=== PATIENT | male | born 1965 | race African-American/Black ===

== ENCOUNTER 2019-07-19 16:16 | Inpatient (IN) | payer OTHER ==
[2019-07-19 18:31] VITALS: BMI 28.5
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
[2019-07-19] MEDS ORDERED: guaiFENesin 200 MG/10 ML 10 ML UNIT-DOSE CUPS PO PRN (21:44)
[2019-07-19] MEDS ORDERED: hydrOXYzine PAMOATE 25 MG CAPSULE (FP) PO PRN (21:44)
[2019-07-19] MEDS ORDERED: IBUPROFEN 400 MG TABLET (FP) PO PRN (21:44)
[2019-07-19] MEDS ORDERED: DICYCLOMINE HCL 10 MG CAPSULE PO PRN (21:44)
[2019-07-19] MEDS ORDERED: BISMUTH SUBSALICYLATE 524 MG/30 ML UD PO PRN (21:44)
[2019-07-19] MEDS ORDERED: ONDANSETRON *ODT* 4 MG TABLET SL PRN (21:44)
[2019-07-19] MEDS ORDERED: METHOCARBAMOL 500 MG TABLET PO PRN (21:44)
[2019-07-19] MEDS ORDERED: MENTHOL/PHENOL 1 EACH UD MM PRN (21:44)
[2019-07-19] MEDS ORDERED: NICOTINE POLACRILEX 2 MG GUM BUC PRN (21:44)
[2019-07-19] MEDS ORDERED: MAGNESIUM CITRATE 300 ML BOTTLE PO PRN (21:44)
[2019-07-19] MEDS ORDERED: ACETAMINOPHEN 325 MG TABLET (FP) PO PRN ×2 (21:44)
[2019-07-19] MEDS ORDERED: MAGNESIUM HYDROX 2400MG/30ML ORAL SUSPENSION 30 ML CUP PO PRN (21:44)
[2019-07-19] MEDS ORDERED: MAG HYDROX/AL HYDROX/SIMETH 30 ML UNIT-DOSE CUP PO PRN (21:44)
[2019-07-19] MEDS ORDERED: P-EPHED 60MG/TRIPROLIDI 2.5MG TABLET PO PRN (21:44)
[2019-07-19] MEDS ORDERED: chlordiazePOXIDE HCL 25 MG CAPSULE PO PRN (21:44)
[2019-07-19] MEDS ORDERED: MELATONIN 5 MG TABLETS PO PRN (21:44)
[2019-07-19] MEDS: ATORVASTATIN CA 20 MG TABLET (FP) PO SCH (23:59)
[2019-07-19] MEDS: THIAMINE HCL 100 MG TABLET (FP) PO SCH (23:59)
[2019-07-19] MEDS: chlordiazePOXIDE HCL 25 MG CAPSULE PO SCH (23:59)
[2019-07-20] MEDS: chlordiazePOXIDE HCL 25 MG CAPSULE PO SCH ×4 (06:38→22:37)
[2019-07-20] MEDS: PRENATAL VITAMINS W/ FOLIC ACID TABLET (FP) PO SCH (10:00)
[2019-07-20] MEDS: NICOTINE 14 MG/24 HOURS TOPICAL PATCH TD SCH (10:00)
[2019-07-20 10:53] LABS: HEMATOCRIT 39.7 % (35.4-49); HEMOGLOBIN 12.9 GM/dL (11.7-16.9); MCH 26.5 pg (25.7-33.7); MCHC 32.5 g/dl (32.0-35.9); MEAN CELL VOLUME 81.4 fl (80-96); MEAN PLT VOLUME 10.2 fl (7.5-11.1); PLATELET COUNT 182 K/MM3 (134-434); RBC 4.87 M/mm3 (4.00-5.60); RDW 14.4 % (11.9-15.9); WHITE BLOOD COUNT 5.3 K/mm3 (4.0-10.0)
[2019-07-20 11:16] LABS: ALBUMIN 3.3 g/dl (3.4-5.0); BILIRUBIN,TOTAL 0.5 mg/dL (0.2-1); BLOOD UREA NITROGEN 10.7 mg/dL (7-18); CALCIUM 8.9 mg/dL (8.5-10.1); POTASSIUM 3.3 mmol/L (3.5-5.1); TOT PROT 6.3 g/dl (6.4-8.2)
--- NOTE | 2019-07-20 14:52 | CONSULT ---
[facility] Psychiatric Consult - Data Date of interview: 07/20/19 Psychiatric History: Patient was approached at bedside. Told financial underwriter:"I'm extremely tired right now. Can I talk to you tomorrow". Please reconsult when patient is willing to be interviewed
[2019-07-20] MEDS ORDERED: POTASSIUM CHLORIDE ORAL LIQUID 20 MEQ/15 ML PO ONE ×3 (15:43→22:00)
--- NOTE | 2019-07-20 15:43 | PN ---
[facility] CIWA - CIWA Score Nausea/Vomitin-Mild Nausea/No Vomiting Muscle Tremors: 4-Moderate,w/Arms Extend Anxiety: 3 Agitation: 3 Paroxysmal Sweats: 3 Orientation: 0-Oriented Tacttile Disturbances: 0-None Auditory Disturbances: 0-None Visual Disturbances: 0-None Headache: 0-None Present CIWA-Ar Total Score: 14 S Progress Note (SOAP) Subjective: Patient asleep but easily awaken, refused to speak with lyric writer Objective: 07/20/19 15:39 Last Vital Signs Temp Pulse Resp BP Pulse Ox 97.4 F L 83 18 111/68 07/20/19 14:36 07/20/19 14:36 07/20/19 14:36 07/20/19 14:36 Laboratory Tests 07/20/19 07/20/19 08:00 08:00 WBC 5.3 RBC 4.87 Hgb 12.9 Hct 39.7 MCV 81.4 MCH 26.5 MCHC 32.5 RDW 14.4 Plt Count 182 D MPV 10.2 Sodium 142 Potassium 3.3 L Chloride 104 Carbon Dioxide 28 Anion Gap 10 BUN 10.7 Creatinine 1.0 Est GFR (CKD-EPI)AfAm 99.15 Est GFR (CKD-EPI)NonAf 85.55 Random Glucose 138 H Calcium 8.9 Total Bilirubin 0.5 AST 29 ALT 40 Alkaline Phosphatase 86 Total Protein 6.3 L Albumin 3.3 L Labs reviewed: K 3.3, glucose 138 Assessment: 07/20/19 15:40 Withdrawal sxs Noted with hypokalemia and hyperglycemia Plan: Continue detox Encouraged PO water intake Hypokalemia: start K Dur 40 Meq solution PO x 2 doses (give at least 4 hours apart), repeat serum K level in AM Hyperglycemia: denies DM, repeat fasting glucose and send A1c
--- NOTE | 2019-07-20 21:19 | PN ---
[facility] Progress Note Note: Patient did not receive 5 pm dose of KCL as was unavailable. Vital Signs 07/20/19 07/20/19 14:36 17:13 Temperature 97.4 F L 98.2 F Pulse Rate 83 86 Respiratory 18 20 Rate Blood Pressure 111/68 124/73 Will receive 40 meq of KCL @ 10 pm, as prescribed. Scheduled for repeat K level in am. Patient will be evaluated for additional KCL dosing after results of a.m. labs are received.
[2019-07-20] MEDS: THIAMINE HCL 100 MG TABLET (FP) PO SCH (22:37)
[2019-07-20] MEDS: ATORVASTATIN CA 20 MG TABLET (FP) PO SCH (22:37)
[2019-07-21] MEDS: chlordiazePOXIDE HCL 25 MG CAPSULE PO SCH ×4 (05:41→22:30)
[2019-07-21 09:50] LABS: POTASSIUM 4.2 mmol/L (3.5-5.1)
[2019-07-21] MEDS: PRENATAL VITAMINS W/ FOLIC ACID TABLET (FP) PO SCH (11:08)
[2019-07-21] MEDS: NICOTINE 14 MG/24 HOURS TOPICAL PATCH TD SCH (11:08)
--- NOTE | 2019-07-21 11:22 | PN ---
[facility] CIWA - CIWA Score Nausea/Vomitin-No Nausea/No Vomiting Muscle Tremors: 3 Anxiety: 3 Agitation: 3 Paroxysmal Sweats: 2 Orientation: 0-Oriented Tacttile Disturbances: 0-None Auditory Disturbances: 0-None Visual Disturbances: 0-None Headache: 0-None Present CIWA-Ar Total Score: 11 S Progress Note (SOAP) Subjective: body aches sweats irritable agitation interrupted sleep Objective: 07/21/19 11:20 Vital Signs Temperature 97.9 F 07/21/19 09:38 Pulse Rate 85 07/21/19 09:38 Respiratory Rate 20 07/21/19 09:38 Blood Pressure 137/74 07/21/19 09:38 O2 Sat by Pulse Oximetry (%) Laboratory Tests 07/20/19 07/20/19 07/20/19 08:00 08:00 08:00 WBC 5.3 RBC 4.87 Hgb 12.9 Hct 39.7 MCV 81.4 MCH 26.5 MCHC 32.5 RDW 14.4 Plt Count 182 D MPV 10.2 Sodium 142 Potassium 3.3 L Chloride 104 Carbon Dioxide 28 Anion Gap 10 BUN 10.7 Creatinine 1.0 Est GFR (CKD-EPI)AfAm 99.15 Est GFR (CKD-EPI)NonAf 85.55 Random Glucose 138 H Fasting Glucose Hemoglobin A1c % Calcium 8.9 Total Bilirubin 0.5 AST 29 ALT 40 Alkaline Phosphatase 86 Total Protein 6.3 L Albumin 3.3 L RPR Titer Nonreactive 07/21/19 07/21/19 08:00 08:00 WBC RBC Hgb Hct MCV MCH MCHC RDW Plt Count MPV Sodium Potassium 4.2 Chloride Carbon Dioxide Anion Gap BUN Creatinine Est GFR (CKD-EPI)AfAm Est GFR (CKD-EPI)NonAf Random Glucose Fasting Glucose 85 Hemoglobin A1c % 6.1 Calcium Total Bilirubin AST ALT Alkaline Phosphatase Total Protein Albumin RPR Titer labs noted potassium WNL A1C 6.1; patient teaching provided on diet changes, eating more fruits/veg, low salt/low sugar diet. increase water intake pt understand and in agreement. Assessment: 07/21/19 11:22 withdrawal s Plan: continue detox increase fluids motrin/tylenol prn
[2019-07-21] MEDS: ATORVASTATIN CA 20 MG TABLET (FP) PO SCH (22:30)
[2019-07-21] MEDS: THIAMINE HCL 100 MG TABLET (FP) PO SCH (22:30)
[2019-07-22] MEDS ORDERED: chlordiazePOXIDE HCL 10 MG CAPSULE PO PRN
[2019-07-22] MEDS: chlordiazePOXIDE HCL 10 MG CAPSULE PO SCH ×4 (05:34→22:42)
[2019-07-22] MEDS: PRENATAL VITAMINS W/ FOLIC ACID TABLET (FP) PO SCH (10:39)
--- NOTE | 2019-07-22 11:33 | PN ---
[facility] CIWA - CIWA Score Nausea/Vomitin-No Nausea/No Vomiting Muscle Tremors: 2 Anxiety: 1-Mildly Anxious Agitation: 2 Paroxysmal Sweats: No Perspiration Orientation: 0-Oriented Tacttile Disturbances: 0-None Auditory Disturbances: 0-None Visual Disturbances: 0-None Headache: 0-None Present CIWA-Ar Total Score: 5 [facility] Progress Note (SOAP) Subjective: agitation restless Objective: 07/22/19 11:32 Vital Signs Temperature 96.4 F L 07/22/19 09:52 Pulse Rate 81 07/22/19 09:52 Respiratory Rate 18 07/22/19 09:52 Blood Pressure 126/80 07/22/19 09:52 O2 Sat by Pulse Oximetry (%) aaox3 ambulating no acute distress Assessment: 07/22/19 11:33 mild withdrawals Plan: continue detox increase fluids
[2019-07-22] MEDS: NICOTINE 14 MG/24 HOURS TOPICAL PATCH TD SCH (11:47)
--- NOTE | 2019-07-22 13:35 | EKG ---
Test Reason : Blood Pressure : / mmHG Vent. Rate : 079 BPM Atrial Rate : 079 BPM P-R Int : 160 ms QRS Dur : 078 ms QT Int : 414 ms P-R-T Axes : 050 029 037 degrees QTc Int : 474 ms NORMAL SINUS RHYTHM NONSPECIFIC ST AND T WAVE ABNORMALITY PROLONGED QT ABNORMAL ECG NO PREVIOUS ECGS AVAILABLE Confirmed by MD Remigio, Javier ([id number]) on 07/22/2019 1:35:24 PM Referred By: Confirmed By:Javier Flood MD
[2019-07-22] MEDS: THIAMINE HCL 100 MG TABLET (FP) PO SCH (22:41)
[2019-07-22] MEDS: ATORVASTATIN CA 20 MG TABLET (FP) PO SCH (22:42)
[2019-07-23] MEDS ORDERED: chlordiazePOXIDE HCL 10 MG CAPSULE PO SCH (05:00)
[2019-07-23 09:19] VITALS: BP 113/77; PULSE 96; TEMP 98.2
--- NOTE | 2019-07-23 09:19 | DS ---
[facility] Detox Discharge Summary Admission Date: 07/19/19 Discharge Date: 07/23/19 - History Present History: Alcohol Dependence, Cocaine Dependence - Physical Exam Results Vital Signs: Vital Signs Temperature 97.7 F 07/23/19 07:27 Pulse Rate 93 H 07/23/19 07:27 Respiratory Rate 18 07/23/19 07:27 Blood Pressure 125/76 07/23/19 07:27 O2 Sat by Pulse Oximetry (%) Pertinent Admission Physical Exam Findings: pt arrived in withdrawal Vital Signs Temperature 97.7 F 07/23/19 07:27 Pulse Rate 93 H 07/23/19 07:27 Respiratory Rate 18 07/23/19 07:27 Blood Pressure 125/76 07/23/19 07:27 O2 Sat by Pulse Oximetry (%) Laboratory Tests 07/20/19 07/20/19 07/20/19 08:00 08:00 08:00 WBC 5.3 RBC 4.87 Hgb 12.9 Hct 39.7 MCV 81.4 MCH 26.5 MCHC 32.5 RDW 14.4 Plt Count 182 D MPV 10.2 Sodium 142 Potassium 3.3 L Chloride 104 Carbon Dioxide 28 Anion Gap 10 BUN 10.7 Creatinine 1.0 Est GFR (CKD-EPI)AfAm 99.15 Est GFR (CKD-EPI)NonAf 85.55 Random Glucose 138 H Fasting Glucose Hemoglobin A1c % Calcium 8.9 Total Bilirubin 0.5 AST 29 ALT 40 Alkaline Phosphatase 86 Total Protein 6.3 L Albumin 3.3 L RPR Titer Nonreactive 07/21/19 07/21/19 08:00 08:00 WBC RBC Hgb Hct MCV MCH MCHC RDW Plt Count MPV Sodium Potassium 4.2 Chloride Carbon Dioxide Anion Gap BUN Creatinine Est GFR (CKD-EPI)AfAm Est GFR (CKD-EPI)NonAf Random Glucose Fasting Glucose 85 Hemoglobin A1c % 6.1 Calcium Total Bilirubin AST ALT Alkaline Phosphatase Total Protein Albumin RPR Titer today pt is aaox3 ambulating no acute distress no s/s of withdrawals - Treatment Hospital Course: Detox Protocol Followed, Detoxed Safely, Responded well, Discharged Condition Good, Rehab Referral Accepted Patient has Accepted a Rehab Referral to: declined rehab; referral provided - Medication Discharge Medications: Ambulatory Orders Simvastatin 40 mg PO DAILY 07/19/19 - Diagnosis (1) Alcohol dependence with withdrawal, uncomplicated Current Visit: Yes Status: Chronic (2) Cocaine dependence, uncomplicated Current Visit: Yes Status: Chronic (3) Depressed affect Current Visit: Yes Status: Acute (4) Mental health disorder Current Visit: Yes Status: Acute (5) Nicotine dependence Current Visit: Yes Status: Chronic Qualifiers: Nicotine product type: cigarettes Substance use status: uncomplicated Qualified Code(s): F17.210 - Nicotine dependence, cigarettes, uncomplicated (6) Substance induced mood disorder Current Visit: Yes Status: Acute - AMA Did Patient Leave Against Medical Advice: No
[2019-07-23 09:46] LABS: PH,URINE 7.5 (5.0-8.0); URINE APPEARANCE CLEAR; URINE BILIRUBIN NEGATIVE (NEGATIVE); URINE COLOR YELLOW; URINE GLUCOSE (UA) NEGATIVE (NEGATIVE); URINE KETONE NEGATIVE (NEGATIVE); URINE LEUK ESTERASE NEGATIVE (NEGATIVE); URINE NITRITE NEGATIVE (NEGATIVE); URINE PROTEIN NEGATIVE (NEGATIVE); URINE UROBILINOGEN 0.2 mg/dL (0.2-1.0)
[2019-07-24] MEDS ORDERED: chlordiazePOXIDE HCL 10 MG CAPSULE PO ONE (05:00)
== END 2019-07-23 09:00 | disposition home or self-care (01) | DRG 774 ==
LOC: YASAS 16:16 → Y6N 22:30
PROVIDERS: ADMIT Allergy & Immunology; ATTEND Allergy & Immunology
PROC: HZ2ZZZZ Detoxification Services for Substance Abuse Treatment (ICD-10-PCS; principal; 2019-07-19)
DX: F10.230 Alcohol dependence with withdrawal, uncomplicated (principal); F14.20 Cocaine dependence, uncomplicated; F17.210 Nicotine dependence, cigarettes, uncomplicated; F99 Mental disorder, not otherwise specified; F32.9 Major depressive disorder, single episode, unspecified; F19.24 Other psychoactive substance dependence with psychoactive substance-induced mood disorder; E87.6 Hypokalemia; E78.00 Pure hypercholesterolemia, unspecified; R73.9 Hyperglycemia, unspecified; L98.8 Other specified disorders of the skin and subcutaneous tissue; Z91.011 Allergy to milk products; Z91.018 Allergy to other foods
CPT/HCPCS: 36415; 80053; 81003; 82947; 83036; 84132; 85027; 86593; 93005; 93010

== ENCOUNTER 2021-02-24 19:37 | Inpatient (IN) | payer OTHER ==
[2021-02-24] MEDS ORDERED: IBUPROFEN 400 MG TABLET (FP) PO PRN (20:59)
[2021-02-24] MEDS ORDERED: ONDANSETRON *ODT* 4 MG TABLET SL PRN (20:59)
[2021-02-24] MEDS ORDERED: BISMUTH SUBSALICYLATE 524 MG/30 ML PO PRN (20:59)
[2021-02-24] MEDS ORDERED: MAG HYDROX/AL HYDROX/SIMETH 30 ML UNIT-DOSE CUP PO PRN (20:59)
[2021-02-24] MEDS ORDERED: ACETAMINOPHEN 325 MG TABLET (FP) PO PRN ×2 (20:59)
[2021-02-24] MEDS ORDERED: NICOTINE POLACRILEX 2 MG GUM BUC PRN (20:59)
[2021-02-24] MEDS ORDERED: MAGNESIUM HYDROX 2400MG/30ML ORAL SUSPENSION 30 ML CUP PO PRN (20:59)
[2021-02-24] MEDS ORDERED: MAGNESIUM CITRATE 300 ML BOTTLE PO PRN (20:59)
[2021-02-24] MEDS ORDERED: diazePAM 5 MG TABLET PO PRN (20:59)
[2021-02-24] MEDS ORDERED: MENTHOL/PHENOL 1 EACH UD MM PRN (20:59)
[2021-02-24 21:14] VITALS: BMI 29.0
[2021-02-24] MEDS: THIAMINE HCL 100 MG TABLET (FP) PO SCH (23:12)
[2021-02-24] MEDS: MELATONIN 5 MG TABLETS PO SCH (23:12)
[2021-02-24] MEDS: diazePAM 5 MG TABLET PO SCH (23:13)
[2021-02-25] MEDS: diazePAM 5 MG TABLET PO SCH ×4 (06:24→23:42)
[2021-02-25] MEDS: PRENATAL VITAMINS W/ FOLIC ACID TABLET (FP) PO SCH (10:46)
[2021-02-25] MEDS: NICOTINE 14 MG/24 HOURS TOPICAL PATCH TD SCH (10:53)
[2021-02-25 12:12] LABS: BLOOD UREA NITROGEN 12.7 mg/dL (7-18); CALCIUM 8.4 mg/dL (8.5-10.1); HEMATOCRIT 38.6 % (35.4-49); HEMOGLOBIN 12.7 GM/dL (11.7-16.9); MCH 27.1 pg (25.7-33.7); MCHC 32.8 g/dl (32.0-35.9); MEAN CELL VOLUME 82.6 fl (80-96); MEAN PLT VOLUME 10.3 fl (7.5-11.1); PLATELET COUNT 224 K/MM3 (134-434); RBC 4.67 M/mm3 (4.00-5.60); RDW 14.4 % (11.9-15.9)
[2021-02-25 12:15] LABS: ALBUMIN 3.4 g/dl (3.4-5.0); BILIRUBIN,TOTAL 0.4 mg/dL (0.2-1); TOT PROT 6.7 g/dl (6.4-8.2)
[2021-02-25] MEDS: METHOCARBAMOL 500 MG TABLET PO PRN (18:57)
[2021-02-25] MEDS: MELATONIN 5 MG TABLETS PO SCH (23:41)
[2021-02-25] MEDS: THIAMINE HCL 100 MG TABLET (FP) PO SCH (23:42)
[2021-02-25] MEDS ORDERED: BACITRACIN 15 GM TUBE TOPICAL OINTMENT TP ONE (23:45)
[2021-02-26] MEDS: diazePAM 5 MG TABLET PO SCH ×3 (06:50→22:56)
[2021-02-26] MEDS: METHOCARBAMOL 500 MG TABLET PO PRN ×2 (11:22→18:42)
[2021-02-26] MEDS: POTASSIUM CHLORIDE TABS 20 MEQ TABLET.ER (FP) PO SCH ×2 (11:22→18:41)
[2021-02-26] MEDS: NICOTINE 14 MG/24 HOURS TOPICAL PATCH TD SCH (11:23)
[2021-02-26] MEDS: PRENATAL VITAMINS W/ FOLIC ACID TABLET (FP) PO SCH (11:23)
[2021-02-26] MEDS: THIAMINE HCL 100 MG TABLET (FP) PO SCH (22:56)
[2021-02-26] MEDS: MELATONIN 5 MG TABLETS PO SCH (22:57)
[2021-02-27] MEDS: diazePAM 5 MG TABLET PO SCH ×2 (07:04→18:14)
[2021-02-27] MEDS: METHOCARBAMOL 500 MG TABLET PO PRN (07:05)
[2021-02-27] MEDS: PRENATAL VITAMINS W/ FOLIC ACID TABLET (FP) PO SCH (10:11)
[2021-02-27] MEDS: NICOTINE 14 MG/24 HOURS TOPICAL PATCH TD SCH (10:11)
[2021-02-27 14:07] LABS: SARS-CoV-2 NAA Not Detected (Not Detected)
[2021-02-27] MEDS: MELATONIN 5 MG TABLETS PO SCH (23:08)
[2021-02-27] MEDS: THIAMINE HCL 100 MG TABLET (FP) PO SCH (23:08)
[2021-02-28] MEDS ORDERED: diazePAM 5 MG TABLET PO ONE ×2 (05:00→06:00)
[2021-02-28] MEDS: METHOCARBAMOL 500 MG TABLET PO PRN (06:00)
[2021-02-28 09:10] VITALS: BP 115/76; PULSE 76; TEMP 97.3
== END 2021-02-28 09:20 | disposition home or self-care (01) | DRG 774 ==
LOC: YASAS 19:37 → Y6N 22:09
PROVIDERS: ADMIT Allergy & Immunology; ATTEND Allergy & Immunology
PROC: HZ2ZZZZ Detoxification Services for Substance Abuse Treatment (ICD-10-PCS; principal; 2021-02-24)
DX: F10.230 Alcohol dependence with withdrawal, uncomplicated (principal); F14.20 Cocaine dependence, uncomplicated; F17.210 Nicotine dependence, cigarettes, uncomplicated; F19.24 Other psychoactive substance dependence with psychoactive substance-induced mood disorder; E87.6 Hypokalemia; J44.9 Chronic obstructive pulmonary disease, unspecified; M25.579 Pain in unspecified ankle and joints of unspecified foot; R74.01 Elevation of levels of liver transaminase levels
CPT/HCPCS: 36415; 80053; 84132; 85027; 86780; 93005; 93010; C9803; U0003; U0005

== ENCOUNTER 2021-07-29 19:07 | Inpatient (IN) | payer OTHER ==
[2021-07-29] MEDS ORDERED: MAG HYDROX/AL HYDROX/SIMETH 30 ML UNIT-DOSE CUP PO PRN (20:36)
[2021-07-29] MEDS ORDERED: ONDANSETRON *ODT* 4 MG TABLET SL PRN (20:36)
[2021-07-29] MEDS ORDERED: ACETAMINOPHEN 325 MG TABLET (FP) PO PRN ×2 (20:36)
[2021-07-29] MEDS ORDERED: BISMUTH SUBSALICYLATE 524 MG/30 ML PO PRN (20:36)
[2021-07-29] MEDS ORDERED: MAGNESIUM CITRATE 300 ML BOTTLE PO PRN (20:36)
[2021-07-29] MEDS ORDERED: NICOTINE 10 MG CARTRIDGE (INHALER) IH PRN (20:36)
[2021-07-29] MEDS ORDERED: IBUPROFEN 400 MG TABLET (FP) PO PRN (20:36)
[2021-07-29] MEDS ORDERED: MAGNESIUM HYDROX 2400MG/30ML ORAL SUSPENSION 30 ML CUP PO PRN (20:36)
[2021-07-29] MEDS ORDERED: MENTHOL/PHENOL 1 EACH UD MM PRN (20:36)
[2021-07-29] MEDS ORDERED: LORazepam 1 MG TABLET PO PRN (20:41)
[2021-07-29 21:00] VITALS: BMI 27.9
[2021-07-29] MEDS: LORazepam 2 MG TABLET PO SCH (22:27)
[2021-07-29] MEDS: MELATONIN 5 MG TABLETS PO SCH (22:32)
[2021-07-29] MEDS: THIAMINE HCL 100 MG TABLET (FP) PO SCH (22:32)
[2021-07-30] MEDS: LORazepam 2 MG TABLET PO SCH ×4 (05:51→22:34)
[2021-07-30] MEDS: PRENATAL VITAMINS W/ FOLIC ACID TABLET (FP) PO SCH (10:37)
[2021-07-30] MEDS: NICOTINE 14 MG/24 HOURS TOPICAL PATCH TD SCH (10:39)
[2021-07-30 11:32] LABS: HEMATOCRIT 43.5 % (35.4-49); HEMOGLOBIN 14.5 GM/dL (11.7-16.9); MCH 26.9 pg (25.7-33.7); MCHC 33.3 g/dl (32.0-35.9); MEAN CELL VOLUME 80.6 fl (80-96); MEAN PLT VOLUME 9.5 fl (7.5-11.1); PLATELET COUNT 227 10^3/uL (134-434); WHITE BLOOD COUNT 8.8 K/mm3 (4.0-10.0)
[2021-07-30 12:09] LABS: CALCIUM 9.4 mg/dL (8.5-10.1)
[2021-07-30 12:10] LABS: ALBUMIN 3.5 g/dl (3.4-5.0); BLOOD UREA NITROGEN 14.9 mg/dL (7-18)
[2021-07-30 12:13] LABS: CREATININE 0.8 mg/dL (0.55-1.3)
[2021-07-30 12:14] LABS: BILIRUBIN,TOTAL 0.6 mg/dL (0.2-1); TOT PROT 7.5 g/dl (6.4-8.2)
[2021-07-30 13:00] LABS: HIV INTERPRETATION NEGATIVE (NEGATIVE)
[2021-07-30] MEDS: METHOCARBAMOL 500 MG TABLET PO PRN (19:45)
[2021-07-30] MEDS: THIAMINE HCL 100 MG TABLET (FP) PO SCH (22:33)
[2021-07-30] MEDS: MELATONIN 5 MG TABLETS PO SCH (22:33)
[2021-07-31] MEDS: LORazepam 1 MG TABLET PO SCH ×4 (05:31→22:30)
[2021-07-31] MEDS: NICOTINE 14 MG/24 HOURS TOPICAL PATCH TD SCH (10:22)
[2021-07-31] MEDS: PRENATAL VITAMINS W/ FOLIC ACID TABLET (FP) PO SCH (10:22)
[2021-07-31] MEDS: THIAMINE HCL 100 MG TABLET (FP) PO SCH (22:30)
[2021-07-31] MEDS: MELATONIN 5 MG TABLETS PO SCH (22:30)
[2021-07-31] MEDS: METHOCARBAMOL 500 MG TABLET PO PRN (22:31)
[2021-08-01] MEDS ORDERED: LORazepam 0.5 MG TABLET PO PRN
[2021-08-01] MEDS: LORazepam 0.5 MG TABLET PO SCH ×4 (06:55→22:29)
[2021-08-01] MEDS: PRENATAL VITAMINS W/ FOLIC ACID TABLET (FP) PO SCH (11:26)
[2021-08-01] MEDS: NICOTINE 14 MG/24 HOURS TOPICAL PATCH TD SCH (11:28)
[2021-08-01] MEDS: MELATONIN 5 MG TABLETS PO SCH (22:28)
[2021-08-01] MEDS: METHOCARBAMOL 500 MG TABLET PO PRN (22:28)
[2021-08-01] MEDS: THIAMINE HCL 100 MG TABLET (FP) PO SCH (22:28)
[2021-08-02] MEDS ORDERED: LORazepam 0.5 MG TABLET PO ONE (05:00)
[2021-08-02 06:05] VITALS: BP 122/73; PULSE 77; TEMP 98.1
== END 2021-08-02 09:06 | disposition home or self-care (01) | DRG 774 ==
LOC: YASAS 19:07 → Y3N 21:09
PROVIDERS: ADMIT Allergy & Immunology; ATTEND Allergy & Immunology
PROC: HZ2ZZZZ Detoxification Services for Substance Abuse Treatment (ICD-10-PCS; principal; 2021-07-29)
DX: F10.230 Alcohol dependence with withdrawal, uncomplicated (principal); F14.20 Cocaine dependence, uncomplicated; F12.20 Cannabis dependence, uncomplicated; F17.210 Nicotine dependence, cigarettes, uncomplicated; J44.9 Chronic obstructive pulmonary disease, unspecified; R74.01 Elevation of levels of liver transaminase levels; W19.XXXA Unspecified fall, initial encounter; Y92.239 Unspecified place in hospital as the place of occurrence of the external cause; Z91.011 Allergy to milk products
CPT/HCPCS: 36415; 80053; 85027; 86780; 87389; C9803; U0003; U0005

== ENCOUNTER 2021-08-27 17:01 | Inpatient (IN) | payer OTHER ==
[2021-08-27 18:11] VITALS: BMI 29.4
[2021-08-27] MEDS ORDERED: IBUPROFEN 400 MG TABLET (FP) PO PRN (20:50)
[2021-08-27] MEDS ORDERED: MENTHOL/PHENOL 1 EACH UD MM PRN (20:50)
[2021-08-27] MEDS ORDERED: NICOTINE 10 MG CARTRIDGE (INHALER) IH PRN (20:50)
[2021-08-27] MEDS ORDERED: MAGNESIUM HYDROX 2400MG/30ML ORAL SUSPENSION 30 ML CUP PO PRN (20:50)
[2021-08-27] MEDS ORDERED: DICYCLOMINE HCL 10 MG CAPSULE PO PRN (20:50)
[2021-08-27] MEDS ORDERED: METHOCARBAMOL 500 MG TABLET PO PRN (20:50)
[2021-08-27] MEDS ORDERED: MAG HYDROX/AL HYDROX/SIMETH 30 ML UNIT-DOSE CUP PO PRN (20:50)
[2021-08-27] MEDS ORDERED: P-EPHED 60MG/TRIPROLIDI 2.5MG TABLET PO PRN (20:50)
[2021-08-27] MEDS ORDERED: ACETAMINOPHEN 325 MG TABLET (FP) PO PRN ×2 (20:50)
[2021-08-27] MEDS ORDERED: guaiFENesin 200 MG/10 ML 10 ML UNIT-DOSE CUPS PO PRN (20:50)
[2021-08-27] MEDS ORDERED: hydrOXYzine PAMOATE 25 MG CAPSULE (FP) PO PRN (20:50)
[2021-08-27] MEDS ORDERED: BISMUTH SUBSALICYLATE 524 MG/30 ML PO PRN (20:50)
[2021-08-27] MEDS ORDERED: MAGNESIUM CITRATE 300 ML BOTTLE PO PRN (20:50)
[2021-08-27] MEDS ORDERED: ONDANSETRON *ODT* 4 MG TABLET SL PRN (20:50)
[2021-08-27] MEDS: MELATONIN 5 MG TABLETS PO SCH (22:22)
[2021-08-27] MEDS: THIAMINE HCL 100 MG TABLET (FP) PO SCH (22:22)
[2021-08-28] MEDS: PRENATAL VITAMINS W/ FOLIC ACID TABLET (FP) PO SCH (10:20)
[2021-08-28] MEDS: NICOTINE 14 MG/24 HOURS TOPICAL PATCH TD SCH (10:21)
[2021-08-28 10:52] LABS: HEMATOCRIT 40.4 % (35.4-49); HEMOGLOBIN 13.4 GM/dL (11.7-16.9); MCHC 33.1 g/dl (32.0-35.9); MEAN CELL VOLUME 81.5 fl (80-96); MEAN PLT VOLUME 9.2 fl (7.5-11.1); PLATELET COUNT 167 10^3/uL (134-434); RBC 4.95 M/mm3 (4.00-5.60); RDW 14.6 % (11.9-15.9); WHITE BLOOD COUNT 5.3 K/mm3 (4.0-10.0)
[2021-08-28 11:16] LABS: ALBUMIN 3.2 g/dl (3.4-5.0); BLOOD UREA NITROGEN 10.2 mg/dL (7-18); CALCIUM 8.7 mg/dL (8.5-10.1)
[2021-08-28 11:19] LABS: CREATININE 0.9 mg/dL (0.55-1.3)
[2021-08-28 11:21] LABS: BILIRUBIN,TOTAL 0.2 mg/dL (0.2-1); TOT PROT 6.5 g/dl (6.4-8.2)
[2021-08-28] MEDS: THIAMINE HCL 100 MG TABLET (FP) PO SCH (23:08)
[2021-08-28] MEDS: MELATONIN 5 MG TABLETS PO SCH (23:08)
[2021-08-29] MEDS: PRENATAL VITAMINS W/ FOLIC ACID TABLET (FP) PO SCH (10:21)
[2021-08-29] MEDS: NICOTINE 14 MG/24 HOURS TOPICAL PATCH TD SCH (10:22)
[2021-08-29 13:13] VITALS: BP 132/87; PULSE 81; TEMP 98.2
[2021-08-29] MEDS ORDERED: ATORVASTATIN CA 20 MG TABLET (FP) PO SCH (22:00)
== END 2021-08-29 13:24 | disposition other institution (70) | DRG 774 ==
LOC: YASAS 17:01 → UNDOADMIN 20:52 → Y6N 20:52
PROVIDERS: ADMIT Allergy & Immunology; ATTEND Allergy & Immunology
PROC: HZ2ZZZZ Detoxification Services for Substance Abuse Treatment (ICD-10-PCS; principal; 2021-08-27)
DX: F10.230 Alcohol dependence with withdrawal, uncomplicated (principal); F14.20 Cocaine dependence, uncomplicated; F12.20 Cannabis dependence, uncomplicated; F17.210 Nicotine dependence, cigarettes, uncomplicated; F43.10 Post-traumatic stress disorder, unspecified; F19.24 Other psychoactive substance dependence with psychoactive substance-induced mood disorder; R78.1 Finding of opiate drug in blood; M19.90 Unspecified osteoarthritis, unspecified site; Z91.011 Allergy to milk products; Z56.0 Unemployment, unspecified
CPT/HCPCS: 36415; 80053; 85027; 86780; 93005; 93010; C9803; U0003; U0005

== ENCOUNTER 2021-08-29 13:24 | Inpatient (IN) | payer OTHER ==
[2021-08-29] MEDS ORDERED: guaiFENesin 200 MG/10 ML 10 ML UNIT-DOSE CUPS PO PRN (14:37)
[2021-08-29] MEDS ORDERED: MAGNESIUM HYDROX 2400MG/30ML ORAL SUSPENSION 30 ML CUP PO PRN (14:37)
[2021-08-29] MEDS ORDERED: P-EPHED 60MG/TRIPROLIDI 2.5MG TABLET PO PRN (14:37)
[2021-08-29] MEDS ORDERED: ACETAMINOPHEN 325 MG TABLET (FP) PO PRN (14:37)
[2021-08-29] MEDS ORDERED: NICOTINE 10 MG CARTRIDGE (INHALER) IH PRN (14:37)
[2021-08-29] MEDS ORDERED: NICOTINE POLACRILEX 2 MG GUM BUC PRN (14:37)
[2021-08-29] MEDS ORDERED: MAG HYDROX/AL HYDROX/SIMETH 30 ML UNIT-DOSE CUP PO PRN (14:37)
[2021-08-29] MEDS ORDERED: LOPERAMIDE HCL 2 MG CAPSULE PO PRN (14:37)
[2021-08-29] MEDS ORDERED: MAGNESIUM CITRATE 300 ML BOTTLE PO PRN (14:37)
[2021-08-29] MEDS ORDERED: PT OWN MED DRAWER 7, Y5N ONE (20:04)
[2021-08-29] MEDS: ATORVASTATIN CA 20 MG TABLET (FP) PO SCH (22:11)
[2021-08-29] MEDS: THIAMINE HCL 100 MG TABLET (FP) PO SCH (22:11)
[2021-08-29] MEDS: MELATONIN 5 MG TABLETS PO SCH (22:11)
[2021-08-30] MEDS: NICOTINE 14 MG/24 HOURS TOPICAL PATCH TD SCH (10:12)
[2021-08-30] MEDS: PRENATAL VITAMINS W/ FOLIC ACID TABLET (FP) PO SCH (10:12)
[2021-08-30] MEDS ORDERED: PT OWN MED DRAWER 7, Y5N ONE (20:43)
[2021-08-30] MEDS: MELATONIN 5 MG TABLETS PO SCH (21:31)
[2021-08-30] MEDS: ATORVASTATIN CA 20 MG TABLET (FP) PO SCH (21:31)
[2021-08-30] MEDS: THIAMINE HCL 100 MG TABLET (FP) PO SCH (21:32)
[2021-08-31] MEDS: NICOTINE 14 MG/24 HOURS TOPICAL PATCH TD SCH (10:28)
[2021-08-31] MEDS: PRENATAL VITAMINS W/ FOLIC ACID TABLET (FP) PO SCH (10:28)
[2021-08-31] MEDS: MINERAL OIL/PETROLAT/WATER TOPICAL CREAM 113 GM JAR TP SCH (12:00)
[2021-08-31] MEDS: COLLOIDAL OATMEAL 1 BAR EACH TP PRN (12:01)
[2021-08-31] MEDS ORDERED: PT OWN MED DRAWER 7, Y5N ONE (20:49)
[2021-08-31] MEDS: MELATONIN 5 MG TABLETS PO SCH (21:32)
[2021-08-31] MEDS: THIAMINE HCL 100 MG TABLET (FP) PO SCH (21:33)
[2021-08-31] MEDS: ATORVASTATIN CA 20 MG TABLET (FP) PO SCH (21:33)
[2021-09-01] MEDS: MINERAL OIL/PETROLAT/WATER TOPICAL CREAM 113 GM JAR TP SCH (09:38)
[2021-09-01] MEDS: NICOTINE 14 MG/24 HOURS TOPICAL PATCH TD SCH (09:39)
[2021-09-01] MEDS: PRENATAL VITAMINS W/ FOLIC ACID TABLET (FP) PO SCH (09:39)
[2021-09-01] MEDS ORDERED: PT OWN MED DRAWER 7, Y5N ONE (19:46)
[2021-09-01] MEDS: MELATONIN 5 MG TABLETS PO SCH (21:54)
[2021-09-01] MEDS: THIAMINE HCL 100 MG TABLET (FP) PO SCH (21:54)
[2021-09-01] MEDS: ATORVASTATIN CA 20 MG TABLET (FP) PO SCH (21:54)
[2021-09-02] MEDS: PRENATAL VITAMINS W/ FOLIC ACID TABLET (FP) PO SCH (09:22)
[2021-09-02] MEDS: MINERAL OIL/PETROLAT/WATER TOPICAL CREAM 113 GM JAR TP SCH (09:22)
[2021-09-02] MEDS: NICOTINE 14 MG/24 HOURS TOPICAL PATCH TD SCH (09:22)
[2021-09-02] MEDS ORDERED: PT OWN MED DRAWER 7, Y5N ONE (20:45)
[2021-09-02] MEDS: MELATONIN 5 MG TABLETS PO SCH (21:32)
[2021-09-02] MEDS: ATORVASTATIN CA 20 MG TABLET (FP) PO SCH (21:32)
[2021-09-02] MEDS: THIAMINE HCL 100 MG TABLET (FP) PO SCH (21:32)
[2021-09-03] MEDS: COLLOIDAL OATMEAL 1 BAR EACH TP PRN (08:18)
[2021-09-03] MEDS ORDERED: PT OWN MED DRAWER 7, Y5N ONE ×2 (09:47→19:44)
[2021-09-03] MEDS: MINERAL OIL/PETROLAT/WATER TOPICAL CREAM 113 GM JAR TP SCH (10:28)
[2021-09-03] MEDS: NICOTINE 14 MG/24 HOURS TOPICAL PATCH TD SCH (10:28)
[2021-09-03] MEDS: PRENATAL VITAMINS W/ FOLIC ACID TABLET (FP) PO SCH (10:29)
[2021-09-03] MEDS: ATORVASTATIN CA 20 MG TABLET (FP) PO SCH (21:23)
[2021-09-03] MEDS: MELATONIN 5 MG TABLETS PO SCH (21:24)
[2021-09-03] MEDS: THIAMINE HCL 100 MG TABLET (FP) PO SCH (21:24)
[2021-09-04] MEDS: NICOTINE 14 MG/24 HOURS TOPICAL PATCH TD SCH (09:31)
[2021-09-04] MEDS: MINERAL OIL/PETROLAT/WATER TOPICAL CREAM 113 GM JAR TP SCH (09:31)
[2021-09-04] MEDS: PRENATAL VITAMINS W/ FOLIC ACID TABLET (FP) PO SCH (09:31)
[2021-09-04] MEDS ORDERED: PT OWN MED DRAWER 7, Y5N ONE (19:55)
[2021-09-04] MEDS: ATORVASTATIN CA 20 MG TABLET (FP) PO SCH (21:51)
[2021-09-04] MEDS: MELATONIN 5 MG TABLETS PO SCH (21:51)
[2021-09-04] MEDS: THIAMINE HCL 100 MG TABLET (FP) PO SCH (21:51)
[2021-09-05] MEDS: COLLOIDAL OATMEAL 1 BAR EACH TP PRN (06:39)
[2021-09-05] MEDS: MINERAL OIL/PETROLAT/WATER TOPICAL CREAM 113 GM JAR TP SCH (09:46)
[2021-09-05] MEDS: PRENATAL VITAMINS W/ FOLIC ACID TABLET (FP) PO SCH (09:46)
[2021-09-05] MEDS: IBUPROFEN 400 MG TABLET (FP) PO PRN ×2 (09:46→21:38)
[2021-09-05] MEDS: NICOTINE 14 MG/24 HOURS TOPICAL PATCH TD SCH (09:46)
[2021-09-05] MEDS ORDERED: PT OWN MED DRAWER 7, Y5N ONE (20:49)
[2021-09-05] MEDS: ATORVASTATIN CA 20 MG TABLET (FP) PO SCH (21:36)
[2021-09-05] MEDS: THIAMINE HCL 100 MG TABLET (FP) PO SCH (21:36)
[2021-09-05] MEDS: MELATONIN 5 MG TABLETS PO SCH (21:37)
[2021-09-06] MEDS: NICOTINE 14 MG/24 HOURS TOPICAL PATCH TD SCH (09:53)
[2021-09-06] MEDS: PRENATAL VITAMINS W/ FOLIC ACID TABLET (FP) PO SCH (09:53)
[2021-09-06] MEDS: MINERAL OIL/PETROLAT/WATER TOPICAL CREAM 113 GM JAR TP SCH (09:53)
[2021-09-06] MEDS ORDERED: PT OWN MED DRAWER 7, Y5N ONE ×2 (10:44→21:36)
[2021-09-06] MEDS: MELATONIN 5 MG TABLETS PO SCH (21:35)
[2021-09-06] MEDS: THIAMINE HCL 100 MG TABLET (FP) PO SCH (21:35)
[2021-09-06] MEDS: ATORVASTATIN CA 20 MG TABLET (FP) PO SCH (21:36)
[2021-09-07] MEDS: IBUPROFEN 400 MG TABLET (FP) PO PRN (00:54)
[2021-09-07] MEDS ORDERED: MASKS NR ONE (08:09)
[2021-09-07] MEDS: NICOTINE 14 MG/24 HOURS TOPICAL PATCH TD SCH (09:14)
[2021-09-07] MEDS: MINERAL OIL/PETROLAT/WATER TOPICAL CREAM 113 GM JAR TP SCH (09:14)
[2021-09-07] MEDS: PRENATAL VITAMINS W/ FOLIC ACID TABLET (FP) PO SCH (09:14)
[2021-09-07] MEDS ORDERED: PT OWN MED DRAWER 7, Y5N ONE (20:53)
[2021-09-07] MEDS: MELATONIN 5 MG TABLETS PO SCH (21:06)
[2021-09-07] MEDS: ATORVASTATIN CA 20 MG TABLET (FP) PO SCH (21:06)
[2021-09-07] MEDS: THIAMINE HCL 100 MG TABLET (FP) PO SCH (21:06)
[2021-09-07] MEDS: hydrOXYzine PAMOATE 25 MG CAPSULE (FP) PO PRN (21:08)
[2021-09-08] MEDS: IBUPROFEN 400 MG TABLET (FP) PO PRN (07:11)
[2021-09-08] MEDS: PRENATAL VITAMINS W/ FOLIC ACID TABLET (FP) PO SCH (09:21)
[2021-09-08] MEDS: NICOTINE 14 MG/24 HOURS TOPICAL PATCH TD SCH (09:22)
[2021-09-08] MEDS: MINERAL OIL/PETROLAT/WATER TOPICAL CREAM 113 GM JAR TP SCH (09:22)
[2021-09-08] MEDS: COLLOIDAL OATMEAL 1 BAR EACH TP PRN (13:06)
[2021-09-08] MEDS: BENZOCAINE 28 GM HEMORRHOIDAL OINTMENT RC PRN (13:07)
[2021-09-08] MEDS: THIAMINE HCL 100 MG TABLET (FP) PO SCH (21:46)
[2021-09-08] MEDS: ATORVASTATIN CA 20 MG TABLET (FP) PO SCH (21:46)
[2021-09-08] MEDS: MELATONIN 5 MG TABLETS PO SCH (21:46)
[2021-09-09] MEDS ORDERED: PT OWN MED DRAWER 7, Y5N ONE ×2 (08:58→20:22)
[2021-09-09] MEDS: MINERAL OIL/PETROLAT/WATER TOPICAL CREAM 113 GM JAR TP SCH (09:44)
[2021-09-09] MEDS: PRENATAL VITAMINS W/ FOLIC ACID TABLET (FP) PO SCH (09:44)
[2021-09-09] MEDS: NICOTINE 14 MG/24 HOURS TOPICAL PATCH TD SCH (09:44)
[2021-09-09 10:36] LABS: CALCIUM 9.5 mg/dL (8.5-10.1)
[2021-09-09 10:37] LABS: ALBUMIN 3.7 g/dl (3.4-5.0); BLOOD UREA NITROGEN 12.3 mg/dL (7-18)
[2021-09-09 10:40] LABS: CREATININE 0.9 mg/dL (0.55-1.3)
[2021-09-09 10:41] LABS: BILIRUBIN,TOTAL 0.3 mg/dL (0.2-1); TOT PROT 7.6 g/dl (6.4-8.2)
[2021-09-09] MEDS: THIAMINE HCL 100 MG TABLET (FP) PO SCH (21:28)
[2021-09-09] MEDS: MELATONIN 5 MG TABLETS PO SCH (21:28)
[2021-09-09] MEDS: ATORVASTATIN CA 20 MG TABLET (FP) PO SCH (21:28)
[2021-09-09] MEDS: IBUPROFEN 400 MG TABLET (FP) PO PRN (21:29)
[2021-09-09] MEDS: hydrOXYzine PAMOATE 25 MG CAPSULE (FP) PO PRN (21:29)
[2021-09-10] MEDS: PRENATAL VITAMINS W/ FOLIC ACID TABLET (FP) PO SCH (09:25)
[2021-09-10] MEDS: NICOTINE 14 MG/24 HOURS TOPICAL PATCH TD SCH (09:25)
[2021-09-10] MEDS: BENZOCAINE 28 GM HEMORRHOIDAL OINTMENT RC PRN (09:26)
[2021-09-10] MEDS: MINERAL OIL/PETROLAT/WATER TOPICAL CREAM 113 GM JAR TP SCH (09:27)
[2021-09-10] MEDS ORDERED: PT OWN MED DRAWER 7, Y5N ONE (20:24)
[2021-09-10] MEDS: MELATONIN 5 MG TABLETS PO SCH (21:10)
[2021-09-10] MEDS: ATORVASTATIN CA 20 MG TABLET (FP) PO SCH (21:10)
[2021-09-10] MEDS: THIAMINE HCL 100 MG TABLET (FP) PO SCH (21:10)
[2021-09-10] MEDS: IBUPROFEN 400 MG TABLET (FP) PO PRN (21:10)
[2021-09-11] MEDS: MINERAL OIL/PETROLAT/WATER TOPICAL CREAM 113 GM JAR TP SCH (09:20)
[2021-09-11] MEDS: NICOTINE 14 MG/24 HOURS TOPICAL PATCH TD SCH (09:21)
[2021-09-11] MEDS: PRENATAL VITAMINS W/ FOLIC ACID TABLET (FP) PO SCH (09:21)
[2021-09-11] MEDS ORDERED: PT OWN MED DRAWER 7, Y5N ONE (20:24)
[2021-09-11] MEDS: IBUPROFEN 400 MG TABLET (FP) PO PRN (21:46)
[2021-09-11] MEDS: ATORVASTATIN CA 20 MG TABLET (FP) PO SCH (21:46)
[2021-09-11] MEDS: THIAMINE HCL 100 MG TABLET (FP) PO SCH (21:46)
[2021-09-11] MEDS: MELATONIN 5 MG TABLETS PO SCH (21:47)
[2021-09-12 06:44] VITALS: BP 133/80; PULSE 89; TEMP 97.1
== END 2021-09-12 06:50 | disposition home or self-care (01) | DRG 772 ==
LOC: YASAS 13:24 → Y3E 13:25
PROVIDERS: ADMIT Allergy & Immunology; ATTEND Allergy & Immunology
PROC: HZ42ZZZ Group Counseling for Substance Abuse Treatment, Cognitive-Behavioral (ICD-10-PCS; principal; 2021-08-29)
DX: F10.20 Alcohol dependence, uncomplicated (principal); F14.20 Cocaine dependence, uncomplicated; F12.20 Cannabis dependence, uncomplicated; F43.10 Post-traumatic stress disorder, unspecified; E78.5 Hyperlipidemia, unspecified; M25.511 Pain in right shoulder; L98.8 Other specified disorders of the skin and subcutaneous tissue; Z62.810 Personal history of physical and sexual abuse in childhood
CPT/HCPCS: 36415; 73030-TC-RT-FY; 80053; C9803; U0003; U0005

== ENCOUNTER 2021-11-02 20:22 | Inpatient (IN) | payer OTHER ==
[2021-11-02] MEDS ORDERED: IBUPROFEN 400 MG TABLET (FP) PO PRN (23:30)
[2021-11-02] MEDS ORDERED: NICOTINE POLACRILEX 2 MG GUM BUC PRN (23:30)
[2021-11-02] MEDS ORDERED: MAGNESIUM HYDROX 2400MG/30ML ORAL SUSPENSION 30 ML CUP PO PRN (23:30)
[2021-11-02] MEDS ORDERED: ONDANSETRON *ODT* 4 MG TABLET SL PRN (23:30)
[2021-11-02] MEDS ORDERED: MAG HYDROX/AL HYDROX/SIMETH 30 ML UNIT-DOSE CUP PO PRN (23:30)
[2021-11-02] MEDS ORDERED: hydrOXYzine PAMOATE 25 MG CAPSULE (FP) PO PRN (23:30)
[2021-11-02] MEDS ORDERED: BISMUTH SUBSALICYLATE 524 MG/30 ML PO PRN (23:30)
[2021-11-02] MEDS ORDERED: MAGNESIUM CITRATE 300 ML BOTTLE PO PRN (23:30)
[2021-11-02] MEDS ORDERED: MENTHOL/PHENOL 1 EACH UD MM PRN (23:30)
[2021-11-02] MEDS ORDERED: ACETAMINOPHEN 325 MG TABLET (FP) PO PRN ×2 (23:30)
[2021-11-02] MEDS ORDERED: METHOCARBAMOL 500 MG TABLET PO PRN (23:30)
[2021-11-02] MEDS ORDERED: diazePAM 5 MG TABLET PO PRN (23:33)
[2021-11-02 23:59] VITALS: BMI 29.2
[2021-11-03] MEDS: diazePAM 5 MG TABLET PO SCH ×5 (03:14→22:50)
[2021-11-03 10:18] LABS: HEMATOCRIT 41.3 % (35.4-49); HEMOGLOBIN 13.1 GM/dL (11.7-16.9); MCH 26.1 pg (25.7-33.7); MCHC 31.6 g/dl (32.0-35.9); MEAN CELL VOLUME 82.5 fl (80-96); MEAN PLT VOLUME 10.3 fl (7.5-11.1); PLATELET COUNT 199 10^3/uL (134-434); RBC 5.01 M/mm3 (4.00-5.60); RDW 14.4 % (11.9-15.9); WHITE BLOOD COUNT 5.9 K/mm3 (4.0-10.0)
[2021-11-03 10:31] LABS: CALCIUM 8.9 mg/dL (8.5-10.1)
[2021-11-03 10:32] LABS: ALBUMIN 3.4 g/dl (3.4-5.0); BLOOD UREA NITROGEN 12.8 mg/dL (7-18)
[2021-11-03 10:35] LABS: CREATININE 0.9 mg/dL (0.55-1.3)
[2021-11-03 10:37] LABS: BILIRUBIN,TOTAL 0.3 mg/dL (0.2-1); TOT PROT 6.4 g/dl (6.4-8.2)
[2021-11-03] MEDS: PRENATAL VITAMINS W/ FOLIC ACID TABLET (FP) PO SCH (10:57)
[2021-11-03] MEDS: THIAMINE HCL 100 MG TABLET (FP) PO SCH (22:50)
[2021-11-03] MEDS: MELATONIN 5 MG TABLETS PO SCH (22:50)
[2021-11-04] MEDS: diazePAM 5 MG TABLET PO SCH ×2 (05:26→18:37)
[2021-11-04] MEDS: PRENATAL VITAMINS W/ FOLIC ACID TABLET (FP) PO SCH (10:32)
[2021-11-04 10:46] LABS: BLOOD UREA NITROGEN 8.7 mg/dL (7-18); CALCIUM 9.4 mg/dL (8.5-10.1)
[2021-11-04 10:47] LABS: ALBUMIN 3.4 g/dl (3.4-5.0)
[2021-11-04 10:50] LABS: CREATININE 0.8 mg/dL (0.55-1.3)
[2021-11-04 10:51] LABS: BILIRUBIN,TOTAL 0.5 mg/dL (0.2-1); TOT PROT 6.6 g/dl (6.4-8.2)
[2021-11-04] MEDS: MELATONIN 5 MG TABLETS PO SCH (22:57)
[2021-11-04] MEDS: THIAMINE HCL 100 MG TABLET (FP) PO SCH (22:58)
[2021-11-05] MEDS ORDERED: diazePAM 5 MG TABLET PO ONE (06:00)
[2021-11-05] MEDS: PRENATAL VITAMINS W/ FOLIC ACID TABLET (FP) PO SCH (11:01)
[2021-11-05] MEDS: THIAMINE HCL 100 MG TABLET (FP) PO SCH (22:13)
[2021-11-05] MEDS: MELATONIN 5 MG TABLETS PO SCH (22:13)
[2021-11-06] MEDS: PRENATAL VITAMINS W/ FOLIC ACID TABLET (FP) PO SCH (10:44)
[2021-11-06 13:28] VITALS: BP 101/64; PULSE 86; TEMP 97.3
== END 2021-11-06 17:10 | disposition other institution (70) | DRG 774 ==
LOC: YASAS 20:22 → Y6N 11-03 02:53
PROVIDERS: ADMIT Allergy & Immunology; ATTEND Allergy & Immunology
PROC: HZ2ZZZZ Detoxification Services for Substance Abuse Treatment (ICD-10-PCS; principal; 2021-11-03)
DX: F10.230 Alcohol dependence with withdrawal, uncomplicated (principal); F14.20 Cocaine dependence, uncomplicated; F12.20 Cannabis dependence, uncomplicated; F17.213 Nicotine dependence, cigarettes, with withdrawal; F43.10 Post-traumatic stress disorder, unspecified; J44.9 Chronic obstructive pulmonary disease, unspecified; R79.89 Other specified abnormal findings of blood chemistry; R26.89 Other abnormalities of gait and mobility; Z62.810 Personal history of physical and sexual abuse in childhood; Z91.011 Allergy to milk products; Z91.018 Allergy to other foods
CPT/HCPCS: 36415; 80053; 82962; 85027; 86780; C9803; U0003; U0005

== ENCOUNTER 2021-11-06 14:57 | Inpatient (IN) | payer OTHER ==
[2021-11-06] MEDS ORDERED: MAG HYDROX/AL HYDROX/SIMETH 30 ML UNIT-DOSE CUP PO PRN (15:08)
[2021-11-06] MEDS ORDERED: MAGNESIUM CITRATE 300 ML BOTTLE PO PRN (15:08)
[2021-11-06] MEDS ORDERED: LOPERAMIDE HCL 2 MG CAPSULE PO PRN (15:08)
[2021-11-06] MEDS ORDERED: NICOTINE 10 MG CARTRIDGE (INHALER) IH PRN (15:08)
[2021-11-06] MEDS ORDERED: MAGNESIUM HYDROX 2400MG/30ML ORAL SUSPENSION 30 ML CUP PO PRN (15:08)
[2021-11-06] MEDS ORDERED: NICOTINE POLACRILEX 2 MG GUM BC PRN (15:08)
[2021-11-06] MEDS ORDERED: guaiFENesin 200 MG/10 ML 10 ML UNIT-DOSE CUPS PO PRN (15:08)
[2021-11-06] MEDS ORDERED: ACETAMINOPHEN 325 MG TABLET (FP) PO PRN (15:08)
[2021-11-06] MEDS ORDERED: P-EPHED 60MG/TRIPROLIDI 2.5MG TABLET PO PRN (15:08)
[2021-11-06] MEDS: THIAMINE HCL 100 MG TABLET (FP) PO SCH (21:01)
[2021-11-06] MEDS: MELATONIN 5 MG TABLETS PO SCH (21:01)
[2021-11-07] MEDS: PRENATAL VITAMINS W/ FOLIC ACID TABLET (FP) PO SCH (10:49)
[2021-11-07] MEDS: COLLOIDAL OATMEAL 1 BAR EACH TP PRN (10:51)
[2021-11-07] MEDS: MELATONIN 5 MG TABLETS PO SCH (21:36)
[2021-11-07] MEDS: THIAMINE HCL 100 MG TABLET (FP) PO SCH (21:36)
[2021-11-08] MEDS ORDERED: AMMONIUM LACTATE 12% LOTION 225 GM BOTTLE TP PRN (09:35)
[2021-11-08] MEDS: PRENATAL VITAMINS W/ FOLIC ACID TABLET (FP) PO SCH (10:00)
[2021-11-08] MEDS: THIAMINE HCL 100 MG TABLET (FP) PO SCH (22:41)
[2021-11-08] MEDS: MELATONIN 5 MG TABLETS PO SCH (22:41)
[2021-11-09] MEDS: PRENATAL VITAMINS W/ FOLIC ACID TABLET (FP) PO SCH (09:32)
[2021-11-09] MEDS: MELATONIN 5 MG TABLETS PO SCH (23:09)
[2021-11-09] MEDS: THIAMINE HCL 100 MG TABLET (FP) PO SCH (23:09)
[2021-11-10] MEDS: ITRACONAZOLE 100 MG CAPSULE PO SCH (07:12)
[2021-11-10] MEDS: PRENATAL VITAMINS W/ FOLIC ACID TABLET (FP) PO SCH (10:33)
[2021-11-10] MEDS: CLOTRIMAZOLE 1% CREAM TP SCH (22:57)
[2021-11-10] MEDS: THIAMINE HCL 100 MG TABLET (FP) PO SCH (22:57)
[2021-11-10] MEDS: MELATONIN 5 MG TABLETS PO SCH (22:57)
[2021-11-11] MEDS: ITRACONAZOLE 100 MG CAPSULE PO SCH (07:33)
[2021-11-11] MEDS: PRENATAL VITAMINS W/ FOLIC ACID TABLET (FP) PO SCH (10:32)
[2021-11-11] MEDS: CLOTRIMAZOLE 1% CREAM TP SCH ×2 (10:32→22:24)
[2021-11-11] MEDS: THIAMINE HCL 100 MG TABLET (FP) PO SCH (22:24)
[2021-11-11] MEDS: MELATONIN 5 MG TABLETS PO SCH (22:24)
[2021-11-12] MEDS: hydrOXYzine PAMOATE 25 MG CAPSULE (FP) PO PRN (00:57)
[2021-11-12] MEDS: ITRACONAZOLE 100 MG CAPSULE PO SCH (07:41)
[2021-11-12] MEDS: CLOTRIMAZOLE 1% CREAM TP SCH ×2 (09:57→23:29)
[2021-11-12] MEDS: PRENATAL VITAMINS W/ FOLIC ACID TABLET (FP) PO SCH (09:57)
[2021-11-12] MEDS: MELATONIN 5 MG TABLETS PO SCH (23:29)
[2021-11-12] MEDS: THIAMINE HCL 100 MG TABLET (FP) PO SCH (23:29)
[2021-11-13] MEDS: ITRACONAZOLE 100 MG CAPSULE PO SCH (07:28)
[2021-11-13] MEDS: CLOTRIMAZOLE 1% CREAM TP SCH ×2 (10:01→21:51)
[2021-11-13] MEDS: PRENATAL VITAMINS W/ FOLIC ACID TABLET (FP) PO SCH (10:01)
[2021-11-13] MEDS: COLLOIDAL OATMEAL 1 BAR EACH TP PRN (11:43)
[2021-11-13] MEDS: MELATONIN 5 MG TABLETS PO SCH (21:42)
[2021-11-13] MEDS: THIAMINE HCL 100 MG TABLET (FP) PO SCH (21:42)
[2021-11-14] MEDS: ITRACONAZOLE 100 MG CAPSULE PO SCH (09:00)
[2021-11-14] MEDS: IBUPROFEN 400 MG TABLET (FP) PO PRN (09:16)
[2021-11-14] MEDS: PRENATAL VITAMINS W/ FOLIC ACID TABLET (FP) PO SCH (09:17)
[2021-11-14] MEDS: CLOTRIMAZOLE 1% CREAM TP SCH ×2 (11:00→21:34)
[2021-11-14 15:50] LABS: HIV INTERPRETATION NEGATIVE (NEGATIVE)
[2021-11-14] MEDS: MELATONIN 5 MG TABLETS PO SCH (21:33)
[2021-11-14] MEDS: THIAMINE HCL 100 MG TABLET (FP) PO SCH (21:33)
[2021-11-15] MEDS: ITRACONAZOLE 100 MG CAPSULE PO SCH (07:03)
[2021-11-15] MEDS: CLOTRIMAZOLE 1% CREAM TP SCH ×2 (10:06→21:30)
[2021-11-15] MEDS: PRENATAL VITAMINS W/ FOLIC ACID TABLET (FP) PO SCH (10:06)
[2021-11-15] MEDS: IBUPROFEN 400 MG TABLET (FP) PO PRN (14:33)
[2021-11-15] MEDS: THIAMINE HCL 100 MG TABLET (FP) PO SCH (21:30)
[2021-11-15] MEDS: MELATONIN 5 MG TABLETS PO SCH (21:30)
[2021-11-16] MEDS: COLLOIDAL OATMEAL 1 BAR EACH TP PRN (07:02)
[2021-11-16] MEDS: ITRACONAZOLE 100 MG CAPSULE PO SCH (07:10)
[2021-11-16] MEDS: PRENATAL VITAMINS W/ FOLIC ACID TABLET (FP) PO SCH (09:33)
[2021-11-16] MEDS: CLOTRIMAZOLE 1% CREAM TP SCH ×2 (09:33→21:40)
[2021-11-16] MEDS: IBUPROFEN 400 MG TABLET (FP) PO PRN ×2 (09:34→21:39)
[2021-11-16] MEDS: MELATONIN 5 MG TABLETS PO SCH (21:39)
[2021-11-16] MEDS: THIAMINE HCL 100 MG TABLET (FP) PO SCH (21:39)
[2021-11-16] MEDS: hydrOXYzine PAMOATE 25 MG CAPSULE (FP) PO PRN (21:40)
[2021-11-17 06:57] VITALS: BP 112/75; PULSE 89; TEMP 97.7
[2021-11-17] MEDS: PRENATAL VITAMINS W/ FOLIC ACID TABLET (FP) PO SCH (09:47)
[2021-11-17] MEDS: CLOTRIMAZOLE 1% CREAM TP SCH (09:47)
== END 2021-11-17 11:19 | disposition home or self-care (01) | DRG 772 ==
LOC: YASAS 14:57 → Y3W 14:59
PROVIDERS: ADMIT Allergy & Immunology; ATTEND Allergy & Immunology
PROC: HZ42ZZZ Group Counseling for Substance Abuse Treatment, Cognitive-Behavioral (ICD-10-PCS; principal; 2021-11-06)
DX: F10.20 Alcohol dependence, uncomplicated (principal); F14.20 Cocaine dependence, uncomplicated; F12.20 Cannabis dependence, uncomplicated; F17.210 Nicotine dependence, cigarettes, uncomplicated; F43.10 Post-traumatic stress disorder, unspecified; J44.9 Chronic obstructive pulmonary disease, unspecified; E78.5 Hyperlipidemia, unspecified; L85.3 Xerosis cutis; Z91.011 Allergy to milk products; Z91.018 Allergy to other foods
CPT/HCPCS: 36415; 87389; C9803; U0003; U0005

== ENCOUNTER 2022-05-22 11:06 | Inpatient (IN) | payer OTHER ==
[2022-05-22 13:00] VITALS: BMI 27.3
[2022-05-22] MEDS ORDERED: MAG HYDROX/AL HYDROX/SIMETH 30 ML UNIT-DOSE CUP PO PRN (15:42)
[2022-05-22] MEDS ORDERED: chlordiazePOXIDE HCL 25 MG CAPSULE PO PRN (15:42)
[2022-05-22] MEDS ORDERED: NICOTINE 10 MG CARTRIDGE (INHALER) IH PRN (15:42)
[2022-05-22] MEDS ORDERED: METHOCARBAMOL 500 MG TABLET PO PRN (15:42)
[2022-05-22] MEDS ORDERED: BISMUTH SUBSALICYLATE 524 MG/30 ML PO PRN (15:42)
[2022-05-22] MEDS ORDERED: IBUPROFEN 600 MG TABLET (FP) PO PRN (15:42)
[2022-05-22] MEDS ORDERED: MAGNESIUM HYDROX 2400MG/30ML ORAL SUSPENSION 30 ML CUP PO PRN (15:42)
[2022-05-22] MEDS ORDERED: ACETAMINOPHEN 325 MG TABLET (FP) PO PRN ×2 (15:42)
[2022-05-22] MEDS ORDERED: LOPERAMIDE HCL 2 MG CAPSULE PO PRN (15:42)
[2022-05-22] MEDS ORDERED: IBUPROFEN 400 MG TABLET (FP) PO PRN (15:42)
[2022-05-22] MEDS ORDERED: ONDANSETRON *ODT* 4 MG TABLET SL PRN (15:42)
[2022-05-22] MEDS ORDERED: DICYCLOMINE HCL 10 MG CAPSULE PO PRN (15:42)
[2022-05-22] MEDS ORDERED: BENZOCAINE/MENTHOL (CHLORASEPTIC ) LOZENGE MM PRN (15:42)
[2022-05-22] MEDS ORDERED: MAGNESIUM CITRATE 300 ML BOTTLE PO PRN (15:42)
[2022-05-22] MEDS: NICOTINE 14 MG/24 HOURS TOPICAL PATCH TD SCH (17:55)
[2022-05-22] MEDS: chlordiazePOXIDE HCL 25 MG CAPSULE PO SCH ×2 (18:00→23:41)
[2022-05-22] MEDS: PRENATAL VITAMINS W/ FOLIC ACID TABLET (FP) PO SCH (18:35)
[2022-05-22] MEDS: hydrOXYzine PAMOATE 25 MG CAPSULE (FP) PO SCH ×2 (19:00→23:18)
[2022-05-22] MEDS: THIAMINE HCL 100 MG TABLET (FP) PO SCH (23:18)
[2022-05-22] MEDS: MELATONIN 5 MG TABLETS PO SCH (23:18)
[2022-05-23] MEDS: chlordiazePOXIDE HCL 25 MG CAPSULE PO SCH ×4 (06:34→23:29)
[2022-05-23] MEDS: hydrOXYzine PAMOATE 25 MG CAPSULE (FP) PO SCH ×5 (06:34→23:29)
[2022-05-23] MEDS: PRENATAL VITAMINS W/ FOLIC ACID TABLET (FP) PO SCH (12:10)
[2022-05-23] MEDS: NICOTINE 14 MG/24 HOURS TOPICAL PATCH TD SCH (12:10)
[2022-05-23] MEDS: THIAMINE HCL 100 MG TABLET (FP) PO SCH (23:29)
[2022-05-23] MEDS: MELATONIN 5 MG TABLETS PO SCH (23:29)
[2022-05-24] MEDS: chlordiazePOXIDE HCL 25 MG CAPSULE PO SCH ×4 (06:25→22:49)
[2022-05-24] MEDS: hydrOXYzine PAMOATE 25 MG CAPSULE (FP) PO SCH ×5 (06:25→22:49)
[2022-05-24] MEDS: NICOTINE 14 MG/24 HOURS TOPICAL PATCH TD SCH (12:18)
[2022-05-24] MEDS: PRENATAL VITAMINS W/ FOLIC ACID TABLET (FP) PO SCH (12:18)
[2022-05-24] MEDS: MELATONIN 5 MG TABLETS PO SCH (22:49)
[2022-05-24] MEDS: THIAMINE HCL 100 MG TABLET (FP) PO SCH (22:49)
[2022-05-25] MEDS ORDERED: chlordiazePOXIDE HCL 10 MG CAPSULE PO PRN
[2022-05-25] MEDS: chlordiazePOXIDE HCL 10 MG CAPSULE PO SCH ×4 (08:09→22:55)
[2022-05-25] MEDS: hydrOXYzine PAMOATE 25 MG CAPSULE (FP) PO SCH ×5 (08:10→22:55)
[2022-05-25] MEDS: PRENATAL VITAMINS W/ FOLIC ACID TABLET (FP) PO SCH (10:51)
[2022-05-25] MEDS: NICOTINE 14 MG/24 HOURS TOPICAL PATCH TD SCH (10:51)
[2022-05-25] MEDS: MELATONIN 5 MG TABLETS PO SCH (22:55)
[2022-05-25] MEDS: THIAMINE HCL 100 MG TABLET (FP) PO SCH (22:55)
[2022-05-26] MEDS: chlordiazePOXIDE HCL 10 MG CAPSULE PO SCH ×2 (06:36→19:35)
[2022-05-26] MEDS: hydrOXYzine PAMOATE 25 MG CAPSULE (FP) PO SCH ×5 (06:38→23:33)
[2022-05-26] MEDS: PRENATAL VITAMINS W/ FOLIC ACID TABLET (FP) PO SCH (13:49)
[2022-05-26] MEDS: NICOTINE 14 MG/24 HOURS TOPICAL PATCH TD SCH (13:49)
[2022-05-26 17:08] VITALS: RESP 18
[2022-05-26] MEDS: THIAMINE HCL 100 MG TABLET (FP) PO SCH (23:33)
[2022-05-26] MEDS: MELATONIN 5 MG TABLETS PO SCH (23:33)
[2022-05-27] MEDS ORDERED: chlordiazePOXIDE HCL 10 MG CAPSULE PO ONE (05:00)
[2022-05-27] MEDS: hydrOXYzine PAMOATE 25 MG CAPSULE (FP) PO SCH (06:02)
[2022-05-27 06:23] VITALS: BP 131/81; PULSE 77; TEMP 97.1
== END 2022-05-27 09:19 | disposition home or self-care (01) | DRG 774 ==
LOC: YASAS 11:06 → Y6N 15:47
PROVIDERS: ADMIT Allergy & Immunology; ATTEND Surgery
PROC: HZ2ZZZZ Detoxification Services for Substance Abuse Treatment (ICD-10-PCS; principal; 2022-05-22)
DX: F10.230 Alcohol dependence with withdrawal, uncomplicated (principal); F14.20 Cocaine dependence, uncomplicated; F12.10 Cannabis abuse, uncomplicated; F17.210 Nicotine dependence, cigarettes, uncomplicated; F19.280 Other psychoactive substance dependence with psychoactive substance-induced anxiety disorder; F19.282 Other psychoactive substance dependence with psychoactive substance-induced sleep disorder; F43.10 Post-traumatic stress disorder, unspecified; E78.5 Hyperlipidemia, unspecified; I10 Essential (primary) hypertension; J44.9 Chronic obstructive pulmonary disease, unspecified; M19.90 Unspecified osteoarthritis, unspecified site; Z62.810 Personal history of physical and sexual abuse in childhood; Z91.011 Allergy to milk products; Z91.040 Latex allergy status
CPT/HCPCS: C9803-CS; U0003; U0005

== ENCOUNTER 2023-07-10 17:47 | Inpatient (IN) | payer OTHER ==
[2023-07-10 22:49] VITALS: BMI 26.5
[2023-07-10] MEDS ORDERED: MAGNESIUM HYDROX 2400MG/30ML ORAL SUSPENSION 30 ML CUP PO PRN (23:25)
[2023-07-10] MEDS ORDERED: BENZONATATE 200 MG CAPSULE PO PRN (23:25)
[2023-07-10] MEDS ORDERED: IBUPROFEN 400 MG TABLET (FP) PO PRN (23:25)
[2023-07-10] MEDS ORDERED: ACETAMINOPHEN 325 MG TABLET (FP) PO PRN (23:25)
[2023-07-10] MEDS ORDERED: ONDANSETRON *ODT* 4 MG TABLET SL PRN (23:25)
[2023-07-10] MEDS ORDERED: LOPERAMIDE HCL 2 MG CAPSULE PO PRN (23:25)
[2023-07-10] MEDS ORDERED: MAG HYDROX/AL HYDROX/SIMETH 30 ML UNIT-DOSE CUP PO PRN (23:25)
[2023-07-10] MEDS ORDERED: guaiFENesin 600 MG TABLET.ER (FP) PO PRN (23:25)
[2023-07-10] MEDS ORDERED: BISMUTH SUBSALICYLATE 524 MG/30 ML PO PRN (23:25)
[2023-07-10] MEDS ORDERED: NICOTINE POLACRILEX 2 MG GUM BUC PRN (23:25)
[2023-07-10] MEDS ORDERED: BENZOCAINE/MENTHOL (CHLORASEPTIC ) LOZENGE MM PRN (23:25)
[2023-07-10] MEDS ORDERED: DICYCLOMINE HCL 10 MG CAPSULE PO PRN (23:25)
[2023-07-10] MEDS ORDERED: POLYETHYLENE GLYCOL (HEALTHYLAX) 3350 17 GM PACKET PO PRN (23:25)
[2023-07-10] MEDS ORDERED: IBUPROFEN 600 MG TABLET (FP) PO PRN (23:25)
[2023-07-10] MEDS ORDERED: P-EPHED 60MG/TRIPROLIDI 2.5MG TABLET PO PRN (23:25)
[2023-07-11] MEDS ORDERED: ACETAMINOPHEN 325 MG TABLET (FP) ONE (01:04)
[2023-07-11 08:53] LABS: HEMATOCRIT 40.6 % (35.4-49); HEMOGLOBIN 13.8 GM/dL (11.7-16.9); MCH 27.3 pg (25.7-33.7); MEAN CELL VOLUME 80.1 fl (80-96); PLATELET COUNT 248 10^3/uL (134-434); RBC 5.07 M/mm3 (4.00-5.60); RDW 13.6 % (11.9-15.9); WHITE BLOOD COUNT 8.4 K/mm3 (4.0-10.0)
[2023-07-11 08:54] LABS: POTASSIUM 4.5 mmol/L (3.5-5.1)
[2023-07-11 08:59] LABS: ALBUMIN 3.4 g/dl (3.4-5.0); BLOOD UREA NITROGEN 9.4 mg/dL (7-18); CALCIUM 8.8 mg/dL (8.5-10.1)
[2023-07-11 09:03] LABS: CREATININE 0.9 mg/dL (0.55-1.3)
[2023-07-11 09:04] LABS: BILIRUBIN,TOTAL 0.3 mg/dL (0.2-1)
[2023-07-11] MEDS: PRENATAL VITAMINS W/ FOLIC ACID TABLET (FP) PO SCH (10:39)
[2023-07-11] MEDS: MELATONIN 5 MG TABLETS PO SCH (22:22)
[2023-07-11] MEDS: hydrOXYzine PAMOATE 25 MG CAPSULE (FP) PO PRN (22:22)
[2023-07-11] MEDS: METHOCARBAMOL 500 MG TABLET PO PRN (22:22)
[2023-07-11] MEDS: THIAMINE HCL 100 MG TABLET (FP) PO SCH (22:23)
[2023-07-12] MEDS: PRENATAL VITAMINS W/ FOLIC ACID TABLET (FP) PO SCH ×2 (10:28→10:30)
[2023-07-12] MEDS: hydrOXYzine PAMOATE 25 MG CAPSULE (FP) PO PRN (17:32)
[2023-07-12] MEDS: METHOCARBAMOL 500 MG TABLET PO PRN (17:32)
[2023-07-12] MEDS: MELATONIN 5 MG TABLETS PO SCH (22:31)
[2023-07-12] MEDS: THIAMINE HCL 100 MG TABLET (FP) PO SCH (22:31)
[2023-07-13 09:08] VITALS: BP 112/66; PULSE 78; RESP 18; TEMP 97.7
[2023-07-13] MEDS: PRENATAL VITAMINS W/ FOLIC ACID TABLET (FP) PO SCH (10:06)
== END 2023-07-13 10:32 | disposition other institution (70) | DRG 774 ==
LOC: YASAS 17:47 → Y3N 07-11 01:47
PROVIDERS: ADMIT Allergy & Immunology; ATTEND Allergy & Immunology
PROC: HZ2ZZZZ Detoxification Services for Substance Abuse Treatment (ICD-10-PCS; principal; 2023-07-11)
DX: F10.20 Alcohol dependence, uncomplicated (principal); F14.20 Cocaine dependence, uncomplicated; F12.20 Cannabis dependence, uncomplicated; F17.210 Nicotine dependence, cigarettes, uncomplicated; F19.280 Other psychoactive substance dependence with psychoactive substance-induced anxiety disorder; F43.10 Post-traumatic stress disorder, unspecified; E78.2 Mixed hyperlipidemia; J44.9 Chronic obstructive pulmonary disease, unspecified
CPT/HCPCS: 36415; 80053; 85027; 86780; 87635; 87811

== ENCOUNTER 2025-02-21 21:57 | Inpatient (IN) | payer OTHER ==
[2025-02-21 22:45] VITALS: BMI 24.9
[2025-02-21] MEDS ORDERED: MAG HYDROX/AL HYDROX/SIMETH 30 ML UNIT-DOSE CUP PO PRN (23:08)
[2025-02-21] MEDS ORDERED: DICYCLOMINE HCL 10 MG CAPSULE PO PRN (23:08)
[2025-02-21] MEDS ORDERED: LOPERAMIDE HCL 2 MG CAPSULE PO PRN (23:08)
[2025-02-21] MEDS ORDERED: P-EPHED 60MG/TRIPROLIDI 2.5MG TABLET PO PRN (23:08)
[2025-02-21] MEDS ORDERED: NICOTINE POLACRILEX 2 MG LOZENGE BC PRN (23:08)
[2025-02-21] MEDS ORDERED: BISMUTH SUBSALICYLATE 524 MG/30 ML PO PRN (23:08)
[2025-02-21] MEDS ORDERED: NALOXONE (NARCAN) HCL 4 MG/0.1 ML SPRAY NS PRN (23:08)
[2025-02-21] MEDS ORDERED: ACETAMINOPHEN 325 MG TABLET (FP) PO PRN (23:08)
[2025-02-21] MEDS ORDERED: BENZOCAINE/MENTHOL (CHLORASEPTIC ) LOZENGE MM PRN (23:08)
[2025-02-21] MEDS ORDERED: IBUPROFEN 400 MG TABLET (FP) PO PRN (23:08)
[2025-02-21] MEDS ORDERED: guaiFENesin 600 MG TABLET.ER (FP) PO PRN (23:08)
[2025-02-21] MEDS ORDERED: NICOTINE POLACRILEX 2 MG GUM BUC PRN (23:08)
[2025-02-21] MEDS ORDERED: MAGNESIUM HYDROX 2400MG/30ML ORAL SUSPENSION 30 ML CUP PO PRN (23:08)
[2025-02-21] MEDS ORDERED: ONDANSETRON *ODT* 4 MG TABLET SL PRN (23:08)
[2025-02-21] MEDS ORDERED: BENZONATATE 200 MG CAPSULE PO PRN (23:08)
[2025-02-21] MEDS ORDERED: POLYETHYLENE GLYCOL (HEALTHYLAX) 3350 17 GM PACKET PO PRN (23:08)
[2025-02-22] MEDS: METHOCARBAMOL 500 MG TABLET PO PRN (00:03)
[2025-02-22] MEDS: hydrOXYzine PAMOATE 25 MG CAPSULE (FP) PO PRN (00:03)
[2025-02-22 08:20] LABS: HEMOGLOBIN 11.8 g/dL (13.7-17.5); MCHC 31.1 g/dl (32.3-36.5); MEAN CELL VOLUME 81.4 fl (79.0-92.2); MEAN PLT VOLUME 11.9 fl (9.4-12.4); PLATELET COUNT 165 x10^3/uL (163-337); RDW 13.9 % (12.2-16.1)
[2025-02-22 08:21] LABS: CHLORIDE 105 mmol/L (98-107); POTASSIUM 3.6 mmol/L (3.5-5.1); SODIUM 140 mmol/L (136-145)
[2025-02-22 08:30] LABS: ALBUMIN 1.7 g/dl (3.4-5.0); ANION GAP 9 mmol/L (4-13); BLOOD UREA NITROGEN 16.4 mg/dL (7-18); CALCIUM 9.2 mg/dL (8.5-10.1); CO2 26 mmol/L (21-32)
[2025-02-22 08:33] LABS: SGPT/ALT 69 U/L (13-61)
[2025-02-22 08:34] LABS: CREATININE 0.9 mg/dL (0.55-1.3); GLUCOSE,RANDOM 44 mg/dL (74-106); SGOT/AST 67 U/L (15-37)
[2025-02-22 08:35] LABS: BILIRUBIN,TOTAL 0.4 mg/dL (0.2-1); TOT PROT 6.4 g/dl (6.4-8.2)
[2025-02-22 08:36] LABS: ALK PHOS 109 U/L (45-117)
[2025-02-22] MEDS: PRENATAL VITAMINS W/ FOLIC ACID TABLET (FP) PO SCH (10:14)
[2025-02-22] MEDS: IBUPROFEN 600 MG TABLET (FP) PO PRN (10:16)
[2025-02-22] MEDS: THIAMINE 100 MG TABLET PO SCH (22:23)
[2025-02-22] MEDS: MELATONIN 5 MG TABLETS PO SCH (22:23)
[2025-02-23 08:32] VITALS: BP 118/73; PULSE 92; RESP 16; TEMP 97.6
== END 2025-02-23 12:13 | disposition home or self-care (01) | DRG 774 ==
LOC: YASAS 21:57 → Y6N 23:36
PROVIDERS: ADMIT Allergy & Immunology; ATTEND Allergy & Immunology
PROC: HZ2ZZZZ Detoxification Services for Substance Abuse Treatment (ICD-10-PCS; principal; 2025-02-21)
DX: F10.20 Alcohol dependence, uncomplicated (principal); F14.20 Cocaine dependence, uncomplicated; F12.20 Cannabis dependence, uncomplicated; F17.210 Nicotine dependence, cigarettes, uncomplicated; F19.282 Other psychoactive substance dependence with psychoactive substance-induced sleep disorder; F43.10 Post-traumatic stress disorder, unspecified; E78.2 Mixed hyperlipidemia; J44.9 Chronic obstructive pulmonary disease, unspecified; E16.2 Hypoglycemia, unspecified; M19.071 Primary osteoarthritis, right ankle and foot; M19.072 Primary osteoarthritis, left ankle and foot; Z62.810 Personal history of physical and sexual abuse in childhood
CPT/HCPCS: 36415; 80053; 80305; 80307; 82962; 83036; 85027; 86780; 93005; 93010